=== PATIENT | female | born 1960 | race Caucasian/White ===

== ENCOUNTER 2024-06-27 15:48 | Outpatient (AMB) | payer MEDICARE, SELFPAY ==
--- NOTE | 2024-06-27 15:54 | AM.OFFWIN_ITS ---
Intake Vital Signs 06/27/24 15:59 Height 5 ft 2 in Weight 139 lb BMI 25.4 BP 114/78 Blood Pressure Location Lt brachial Position Sitting Pulse 66 Pulse Source Pulse Oximeter Temp 98.3 F Temp Source Oral Pulse Oximetry (%) 97 Oxygen Delivery Method Room Air Intake Visit Reasons: possible Uti Intake Note: pt c/o urinary urgency and discomfort. Started yesterday Patient Tobacco Use Status: Never used Tobacco Allergies Sulfa (Sulfonamide Antibiotics) Allergy (Intermediate, Verified 06/27/24 16:08) Rash Do you need a note to return to daycare/school/sports/work: No HPI HPI Comments History of Present Illness Details 63 y/o female [facility] Urinary symptoms. Reports that symptoms started yesterday. She c/o urinary frequency and urgency. PFSH Social History Patient Tobacco Use Status: Never used Tobacco Review of Systems Const All systems reviewed & are unremarkable except as noted in HPI and below Physical Exam Vital Signs: Last Vital Signs Temp 98.3 F 06/27/24 15:59 Pulse 66 06/27/24 15:59 BP 114/78 06/27/24 15:59 Pulse Ox 97 06/27/24 15:59 Oxygen Delivery Method Room Air 06/27/24 15:59 BMI result Body Mass Index 25.4 Const General: comfortable and no acute distress Orientation/consciousness: patient oriented x3 Other: Pelvic examination declined today. General: Yes no CVA tenderness Back/Spine/Pelvis Back: no CVA tenderness Neuro General: patient oriented x3, gait normal and moves all extremities Psych Speech and movement: Normal speech and movement present Results AMB Urinalysis, Automated UA Leukoctes 125 Roberto/uL Last Edit by Alvin Escalera CMA on 06/27/24 16:11 UA Nitrite Negative Last Edit by Alvin Escalera CMA on 06/27/24 16:11 UA Urobilinogen 0.2 mg/dL Last Edit by Alvin Escalera CMA on 06/27/24 16:11 UA Protein 0 mg/dL Last Edit by Alvin Escalera CMA on 06/27/24 16:11 UA pH 6.5 Last Edit by Alvin Escalera CMA on 06/27/24 16:11 UA Blood 0 Graham/uL Last Edit by Alvin Escalera CMA on 06/27/24 16:11 UA Specific [place] 1.005 Last Edit by Alvin Escalera, JESUS on 06/27/24 16:11 UA Ketone Negative Last Edit by Alvin Escalera, JESUS on 06/27/24 16:11 UA Bilirubin 0 mg/dL Last Edit by Alvin Escalera, JESUS on 06/27/24 16:11 UA Glucose 0 mg/dL Last Edit by Alvin Escalera, JESUS on 06/27/24 16:11 Results Reviewed Results Reviewed: Laboratory Last Values Urine pH (Auto) 6.5 06/27/24 16:09 Specific [place] (Auto) 1.005 06/27/24 16:09 Urine Protein (Auto) 0 mg/dL 06/27/24 16:09 Glucose (UA)(Auto) 0 mg/dL 06/27/24 16:09 Urine Ketones (Auto) Negative 06/27/24 16:09 Urine Blood (Auto) 0 Graham/uL 06/27/24 16:09 Urine Nitrite (Auto) Negative 06/27/24 16:09 Urine Bilirubin (Auto) 0 mg/dL 06/27/24 16:09 Urine Urobilinogen (Auto) 0.2 mg/dL 06/27/24 16:09 Leukocyte Esterase (Auto) 125 Roberto/uL 06/27/24 16:09 Assessment & Plan Assessment & Plan (1) Urinary tract infection symptoms: Code(s): R39.9 - Unspecified symptoms and signs involving the genitourinary system Plan: Ordered Macrobid Hydrate well with plenty of water RTC if not better. Orders: Orders AMB Urinalysis Automated Today Z13.9 - Encounter for screening, unspecified Medications: New nitrofurantoin monohyd/m-cryst 100 mg (Macrobid) must administer with a meal/food 100 mg PO Q12H 14 caps 0RF 7 days R39.9 - U nspecified symptoms and signs involving the genitourinary system Coding Level of Care Code New Pt Level 3 (81224) Diagnoses Urinary tract infection symptoms R39.9 Time Spent (min) 15
[2024-06-27 15:59] VITALS: BP 114/78; PULSE 66; TEMP 36.8; O2SAT 97; BMI 25.4
== END 2024-06-27 16:20 | disposition home or self-care (01) ==
PROVIDERS: PCP Internal Medicine; Visit Provider Nurse Practitioner Family
DX: R35.0 Frequency of micturition (principal); R39.15 Urgency of urination
CPT/HCPCS: 81003; 99203